=== PATIENT | male | born 1990 | race Caucasian/White ===

== ENCOUNTER 2020-11-26 15:33 | Emergency (ER) | payer OTHER ==
[~2020-11-26] VITALS: Ht 172.7 cm; Wt 95.2 kg
== END 2020-11-26 17:41 | disposition home or self-care (01) ==
LOC: ED 15:33
DX: S63.285A Dislocation of proximal interphalangeal joint of left ring finger, initial encounter (principal); W22.8XXA Striking against or struck by other objects, initial encounter
CPT/HCPCS: 26770; 99283-25